=== PATIENT | male | born 1960 | race Two or more races ===

== ENCOUNTER → 2022-08-06 | Outpatient (CLI) | payer MEDICARE ==
[2022-08-06 10:21] LABS: HEMOGLOBIN 15.4 g/dL (14.0-18.0)
[2022-08-06 10:31] LABS: INR 0.94; PROTHROMBIN TIME 12.8 seconds (11.9-14.5)
[2022-08-06 10:32] LABS: PARTIAL THROMBOPLASTIN TIME 27.6 seconds (23.8-35.5)
[2022-08-06 10:36] LABS: CREATININE, SERUM 0.79 mg/dL (0.72-1.25)
== END ==
LOC: DX 09:59
PROVIDERS: ATTEND Internal Medicine Infectious Disease
DX: M86.172 Other acute osteomyelitis, left ankle and foot (principal)
CPT/HCPCS: 36415; 36569; 71045; 82565; 84520; 85014; 85049; 85610; 85730

== ENCOUNTER → 2022-11-17 | Outpatient (CLI) | payer MEDICARE | LOC: DX 09:19 | PROVIDERS: ATTEND Internal Medicine Infectious Disease | DX: M86.172 Other acute osteomyelitis, left ankle and foot (principal) | CPT/HCPCS: 36569; 71045 ==